=== PATIENT | female | born 1940 | race Caucasian/White ===

== ENCOUNTER 2016-08-01 14:34 | Inpatient (IN) | payer MEDICARE, OTHER ==
[2016-08-01] MEDS ORDERED: SODIUM CHLORIDE 0.9% 1,000 ML IV ONE (15:00)
[2016-08-01] MEDS ORDERED: ONDANSETRON 4 MG/2 ML VIAL IVP STA (15:00)
[2016-08-01] MEDS ORDERED: HYDROmorphone 1 MG/ML SYRINGE IVP STA (15:00)
[2016-08-01] MEDS ORDERED: ONDANSETRON 4 MG/2 ML VIAL ONE (15:08)
[2016-08-01] MEDS ORDERED: HYDROmorphone 1 MG/ML SYRINGE ONE (15:08)
[2016-08-01] MEDS ORDERED: ZOLPIDEM 5 MG TABLET PO PRN (16:23)
[2016-08-01] MEDS ORDERED: HYDROmorphone 1 MG/ML SYRINGE IVP PRN (16:23)
[2016-08-01] MEDS ORDERED: SODIUM CHLORIDE FLUSH 0.9% 10 ML SYRINGE IVP PRN ×3 (16:23→23:49)
[2016-08-01] MEDS ORDERED: PROCHLORPERAZINE 10 MG/2 ML VIAL IVP PRN (16:23)
[2016-08-01] MEDS ORDERED: PROMETHAZINE 25 MG/1 ML VIAL IM PRN (16:23)
[2016-08-01] MEDS ORDERED: oxyCODONE 5 MG TABLET PO PRN ×2 (16:23)
[2016-08-01] MEDS ORDERED: ONDANSETRON 4 MG/2 ML VIAL IVP PRN (16:23)
[2016-08-01] MEDS ORDERED: SODIUM CHLORIDE FLUSH 0.9% 10 ML SYRINGE IVP SCH (22:00)
[2016-08-01] MEDS: PIPERACILLIN/TAZOBACTAM 4.5 GM in SODIUM CHLORIDE 0.9% MINIBAG 100 ML IV SCH (23:43)
[2016-08-02] MEDS ORDERED: IOPAMIDOL-300 100 ML VIAL IVP ONE (00:30)
[2016-08-02] MEDS ORDERED: IOVERSOL-300 50 ML VIAL PO ONE (00:33)
[2016-08-02] MEDS: PIPERACILLIN/TAZOBACTAM 4.5 GM in SODIUM CHLORIDE 0.9% MINIBAG 100 ML IV SCH ×4 (00:36→18:10)
[2016-08-02] MEDS: SODIUM CHLORIDE 0.9% 1,000 ML IV SCH ×4 (00:36→19:38)
[2016-08-02] MEDS: ACETAMINOPHEN 325 MG TABLET PO PRN ×2 (00:49→16:30)
[2016-08-02] MEDS: PANTOPRAZOLE 40 MG TABLET PO SCH (06:40)
[2016-08-02] MEDS: ENOXAPARIN 40 MG/0.4 ML SYRINGE SUBQ SCH (08:22)
[2016-08-02] MEDS: POLYETHYLENE GLYCOL 3350 17 GM PACKET PO SCH (08:22)
[2016-08-02] MEDS: FENOFIBRATE 48 MG TABLET PO SCH (08:25)
[2016-08-02] MEDS: hydroCHLOROthiazide 25 MG TABLET PO SCH (08:32)
[2016-08-02] MEDS: LOSARTAN 50 MG TABLET PO SCH (08:32)
[2016-08-02] MEDS: DOXYCYCLINE 40 MG PO SCH (14:02)
[2016-08-02] MEDS ORDERED: MAGNESIUM SULFATE 2 GRAM 50 ML IV ONE (14:46)
[2016-08-02] MEDS ORDERED: SODIUM CHLORIDE 0.9% 100ML 100 ML IV ONE (18:04)
[2016-08-02] MEDS: DEXTROSE 5%-0.9% NACL 1,000 ML IV SCH (18:56)
[2016-08-03] MEDS: PIPERACILLIN/TAZOBACTAM 4.5 GM in SODIUM CHLORIDE 0.9% MINIBAG 100 ML IV SCH ×2 (01:56→10:56)
[2016-08-03] MEDS: DEXTROSE 5%-0.9% NACL 1,000 ML IV SCH ×2 (02:04→11:01)
[2016-08-03] MEDS: PANTOPRAZOLE 40 MG TABLET PO SCH (06:05)
[2016-08-03] MEDS: hydroCHLOROthiazide 25 MG TABLET PO SCH (08:16)
[2016-08-03] MEDS: LOSARTAN 50 MG TABLET PO SCH (08:17)
[2016-08-03] MEDS: FENOFIBRATE 48 MG TABLET PO SCH (08:17)
[2016-08-03] MEDS: DOXYCYCLINE 40 MG PO SCH (08:19)
[2016-08-03] MEDS ORDERED: LORazepam 2 MG/ML SYRINGE IVP PRN (09:26)
[2016-08-03] MEDS: ENOXAPARIN 40 MG/0.4 ML SYRINGE SUBQ SCH (09:36)
[2016-08-03] MEDS: POLYETHYLENE GLYCOL 3350 17 GM PACKET PO SCH (09:36)
[2016-08-03] MEDS ORDERED: BUPIVACAINE 0.5% PF 30 ML VIAL SUBQ ONE ×2 (16:38)
[2016-08-03] MEDS ORDERED: LACTATED RINGERS 1,000 ML IV ONE ×2 (16:38→17:16)
[2016-08-03] MEDS ORDERED: SODIUM CHLORIDE 0.9% 1,000 ML IV ONE (16:38)
[2016-08-03] MEDS ORDERED: ESMOLOL 100 MG/10 ML VIAL IVP ONE (16:45)
[2016-08-03] MEDS ORDERED: LIDOCAINE-MPF 2% 5 ML VIAL IM ONE (16:45)
[2016-08-03] MEDS ORDERED: PIPERACILLIN/TAZOBACTAM 3.375 GM in SODIUM CHLORIDE 0.9% MINIBAG 100 ML IV SCH (16:45)
[2016-08-03] MEDS ORDERED: PROPOFOL 200 MG/20 ML VIAL IVP ONE (16:45)
[2016-08-03] MEDS ORDERED: SUCCINYLCHOLINE 200 MG/10 ML VIAL IVP ONE (16:45)
[2016-08-03] MEDS ORDERED: fentaNYL 250 MCG/5 ML VIAL IVP ONE (16:45)
[2016-08-03] MEDS ORDERED: ACETAMINOPHEN 1,000 MG/100 ML VIAL IV ONE (16:45)
[2016-08-03] MEDS ORDERED: DEXAMETHASONE 4 MG/ML VIAL IVP ONE (16:45)
[2016-08-03] MEDS ORDERED: MIDAZOLAM 2 MG/2 ML VIAL IVP ONE (16:45)
[2016-08-03] MEDS ORDERED: ePHEDrine 50 MG/ML AMP IVP ONE (16:45)
[2016-08-03] MEDS ORDERED: HYDROcod/ACETAM 5/325 MG TABLET PO PRN (18:03)
[2016-08-03] MEDS ORDERED: SODIUM CHLORIDE FLUSH 0.9% 10 ML SYRINGE IVP PRN (18:03)
[2016-08-03] MEDS: PIPERACILLIN/TAZOBACTAM 3.375 GM in SODIUM CHLORIDE 0.9% MINIBAG 100 ML IV SCH ×2 (18:54→23:50)
[2016-08-03] MEDS: D5NS W/20 MEQ KCL 1,000 ML IV SCH (18:54)
[2016-08-03] MEDS: SODIUM CHLORIDE FLUSH 0.9% 10 ML SYRINGE IVP SCH (21:50)
[2016-08-04] MEDS: PIPERACILLIN/TAZOBACTAM 3.375 GM in SODIUM CHLORIDE 0.9% MINIBAG 100 ML IV SCH ×2 (05:37→12:53)
[2016-08-04] MEDS: D5NS W/20 MEQ KCL 1,000 ML IV SCH (05:37)
[2016-08-04] MEDS: PANTOPRAZOLE 40 MG TABLET PO SCH (06:18)
[2016-08-04] MEDS: SODIUM CHLORIDE FLUSH 0.9% 10 ML SYRINGE IVP SCH ×3 (07:29→15:22)
[2016-08-04] MEDS: ENOXAPARIN 40 MG/0.4 ML SYRINGE SUBQ SCH (08:59)
[2016-08-04] MEDS: FENOFIBRATE 48 MG TABLET PO SCH (08:59)
[2016-08-04] MEDS: hydroCHLOROthiazide 25 MG TABLET PO SCH (09:00)
[2016-08-04] MEDS: LOSARTAN 50 MG TABLET PO SCH (09:00)
[2016-08-04] MEDS: DOXYCYCLINE 40 MG PO SCH (09:00)
[2016-08-04] MEDS: POLYETHYLENE GLYCOL 3350 17 GM PACKET PO SCH (09:01)
[2016-08-04] MEDS ORDERED: POTASSIUM CHLORIDE 20 MEQ TABLET PO ONE (11:45)
== END 2016-08-04 17:50 | disposition home or self-care (01) | DRG 417 ==
PROC: 0FT44ZZ Resection of Gallbladder, Percutaneous Endoscopic Approach (ICD-10-PCS; principal; 2016-08-03 14:15)
DX: K80.20 Calculus of gallbladder without cholecystitis without obstruction (principal); K85.90 Acute pancreatitis without necrosis or infection, unspecified; K80.00 Calculus of gallbladder with acute cholecystitis without obstruction; K85.10 Biliary acute pancreatitis without necrosis or infection; N17.9 Acute kidney failure, unspecified; I10 Essential (primary) hypertension; E78.5 Hyperlipidemia, unspecified; Z85.42 Personal history of malignant neoplasm of other parts of uterus; Z90.710 Acquired absence of both cervix and uterus; Z79.82 Long term (current) use of aspirin; L71.9 Rosacea, unspecified; Z66 Do not resuscitate; Z82.61 Family history of arthritis; Z82.49 Family history of ischemic heart disease and other diseases of the circulatory system; M19.90 Unspecified osteoarthritis, unspecified site; E66.9 Obesity, unspecified; Z98.49 Cataract extraction status, unspecified eye; Z96.1 Presence of intraocular lens; Z68.31 Body mass index [BMI] 31.0-31.9, adult

== ENCOUNTER 2018-02-02 15:04 | Outpatient (CLI) | payer MEDICARE, OTHER ==
--- NOTE | 2018-02-04 17:01 | Mammography Report ---
Reason: SCREENING MAMMO Procedure Date: 02/02/2018 Accession Number: [id number] / [id number] Procedure: MGN - Screening Mammo Dig Bilat CPT Code: FULL RESULT: EXAM: Screening Mammo Dig Bilat DATE: 02/02/2018 3:37 PM CLINICAL HISTORY: 77-year-old female presents for screening mammogram. TECHNIQUE: Bilateral CC and MLO views were obtained. COMPARISON: 09/09/2015, 06/28/2014, 06/12/2013, 05/18/2012. FINDINGS: The breasts demonstrate heterogeneously dense fibroglandular parenchyma bilaterally. Typically benign round calcifications are seen in the right breast. No suspicious masses, clustered microcalcifications, or regions of architectural distortion are identified. IMPRESSION: Benign findings RECOMMENDATION: Routine annual screening unless otherwise clinically indicated. BIRADS CATEGORY 2: Benign findings STANDARD QUALIFYING STATEMENTS: 1. This examination was not reviewed with the aid of Computer-Aided Detection (CAD). 2. A negative or benign imaging report should not delay biopsy if clinically suspicious findings are present. Consider surgical consultation if warrented. More than 5% of cancers are not identified by imaging. 3. Dense breasts may obscure an underlying neoplasm. 4. This examination was reviewed without the aid of 3D breast imaging (tomosynthesis).
== END 2018-02-02 15:05 | disposition home or self-care (01) ==
LOC: DI.N 15:04
PROVIDERS: ATTEND Radiology Diagnostic Radiology
DX: Z12.31 Encounter for screening mammogram for malignant neoplasm of breast (principal)
CPT/HCPCS: 77067

== ENCOUNTER 2018-02-03 09:06 | Outpatient (CLI) | payer MEDICARE, OTHER ==
--- NOTE | 2018-02-07 08:07 | DEXA Report ---
Reason: BONE DISEASE Procedure Date: 02/03/2018 Accession Number: [id number] / [id number] Procedure: DEX - Dexa Spine and/or Hip CPT Code: FULL RESULT: EXAM: Dexa Spine and/or Hip DATE: 02/03/2018 10:02 AM CLINICAL HISTORY: BONE DISEASE TECHNIQUE: Dual energy x-ray absorptiometry (DXA) was performed on a [employer] System. Regions measured are the AP Spine, femoral neck, and if needed forearm. COMPARISON: 01/21/2016. In accordance with the International Society for Clinical Densitometry (ISCD) guidelines, data from previous exams may be reanalyzed using current recommendations and techniques. This is done to allow a more accurate basis for comparison with the current study. FINDINGS: The data for the lumbar spine is as follows: BMD (g/cm/cm) T-SCORE Z-SCORE REGION L1 1.213 0.7 2.3 L2 1.320 1.0 2.7 L3 1.369 1.4 3.1 L4 1.365 1.4 3.0 TOTAL 1.319 1.2 2.8 NOTE: All evaluable vertebrae are used for classification The data for the hip is as follows: BMD (g/cm/cm) T-SCORE Z-SCORE REGION Neck 0.791 -1.8 0.2 TOTAL 0.900 -0.9 1.0 NOTE: The femoral neck or total proximal femur, whichever is lowest, is used for classification. NOTE: The 33% radius of the nondominant forearm is used for classification. DXA RESULTS SUMMARY: Spine SCAN DATE AGE BMD CHANGE VS CHANGE VS PREVIOUS PREVIOUS % [birth year]/2018 [age] 1.319 -0.114 -0.3 01/21/2016 [age] 1.323 * Denotes significant change at the 95% confidence level. Denotes dissimilar scan types or analysis methods. DXA RESULTS SUMMARY: Hip SCAN DATE AGE BMD CHANGE VS CHANGE VS PREVIOUS PREVIOUS % [birth year]2018 [age] 0.900 -0.074* -7.6* 01/21/2016 75.2 0.974 * Denotes significant change at the 95% confidence level. Denotes dissimilar scan types or analysis methods. IMPRESSION: THE WHO CLASSIFICATION BASED ON THE INTERNATIONAL REFERENCE STANDARD IS OSTEOPENIA. THE FRACTURE RISK IS INCREASED. RECOMMENDATION: Patients with diagnosis of osteoporosis or osteopenia should have regular bone mineral density assessment. For those eligible for Medicare, routine testing is allowed once every 2 years. Testing frequency can be increased for patients who have rapidly progressing disease or for those who are receiving medical therapy to restore bone mass. COMMENT: World Health Organization (WHO) definitions for osteoporosis and osteopenia: NORMAL BMD: T-score at -1.0 or higher, fracture risk is low OSTEOPENIA BMD: T-score between -1.0 and -2.5, fracture risk is increased. OSTEOPOROSIS BMD: T-score at -2.5 or lower, fracture risk is high. National Osteoporosis Foundation recommends: 1. Obtain adequate dietary calcium (at least 1200 mg per day) and vitamin D (400-800 international units per day). 2. Participate, as appropriate, in regular weightbearing and muscle-strengthening exercise. 3. Avoid tobacco use and reduce alcohol and caffeine intake. 4. For more detailed information see the website at www.NOF.org.
== END 2018-02-03 09:07 | disposition home or self-care (01) ==
LOC: DI 09:06
PROVIDERS: ATTEND Physician Assistant Medical
DX: M85.89 Other specified disorders of bone density and structure, multiple sites (principal)
CPT/HCPCS: 77080

== ENCOUNTER 2018-06-13 08:17 | Emergency (ER) | payer MEDICARE, OTHER ==
[2018-06-13] MEDS ORDERED: BUFFERED LIDOCAINE 10 ML SYRINGE SUBQ STA (08:32)
--- NOTE | 2018-06-13 08:35 | ED Physician Documentation ---
PD HPI HEAD INJURY - Stated complaint Stated Complaint: HEAD INJ/FALL - Chief complaint Chief Complaint: Laceration - History obtained from History obtained from: Patient, Family - History of Present Illness Mechanism of head injury: Fell Where head injury occurred: Home Timing - onset: Today Location of injury: Back Quality of pain: Pain Associated symptoms: No: LOC, AMS, Amnesia, Nausea / vomiting, Neck pain, Paresthesias, Seizures, Ear drainage, Nasal drainage Symptoms improve with: Rest Symptoms worsen with: Palpation, Movement Contributing factors: No: Anticoagulated Similar symptoms before: Has not had sx before Recently seen: Not recently seen - Additional information Additional information: Previously well 77-year-old female got up to let the cat out this morning when she slipped on a throw rug her feet came out from underneath her and she struck the back of her head on a nightstand. She denies any loss of consciousness with this and denies any neck pain. She does have a small abrasion to her nose as well. She denies any dizziness or nausea or change in mentation. She is accompanied by her who notes she feels well. Review of Systems Constitutional: denies: Fever Eyes: denies: Decreased vision Ears: denies: Ear pain Nose: denies: Rhinorrhea / runny nose, Congestion Throat: denies: Sore throat Respiratory: denies: Dyspnea, Cough GI: denies: Nausea, Vomiting PD PAST MEDICAL HISTORY - Past Medical History Cardiovascular: Hypertension Respiratory: Other Endocrine/Autoimmune: None GI: None : Incontinence HEENT: None Musculoskeletal: Osteoarthritis Derm: Psoriasis, Rosacea - Past Surgical History General: Appendectomy, Colonoscopy /DIETETIC TECHNICIAN REGISTERED: Tubal ligation, Hysterectomy HEENT: Cataracts - Present Medications Home Medications: Ambulatory Orders Medication Instructions Recorded Confirmed Calcium Carbonate/Vitamin D3 600 mg ORAL DAILY 01/11/14 06/13/18 [Calcium 600-Vit D3 200 Tablet] Aspirin Chewable [[facility] Balaji 81 mg PO DAILY 08/01/16 06/13/18 Aspirin] Triamterene/Hydrochlorothiazid 1 tab PO DAILY 08/01/16 08/01/16 [Triamterene-Hctz 37.5-25 mg Tb] Doxycycline Monohydrate [Oracea] 40 mg PO DAILY 08/02/16 08/02/16 Fenofibrate [Tricor] 144 mg PO DAILY tablet 08/04/16 06/13/18 HYDROcod/ACETAM 5/325 [Brooks 5/325] 1 tab PO Q4HR PRN #25 tablet 08/04/16 Losartan [Cozaar] 100 mg PO DAILY tablet 08/04/16 06/13/18 Pantoprazole [Protonix] 40 mg PO QDAC tablet 08/04/16 Polyethylene Glycol 3350 [Miralax] 17 gm PO DAILY packet 08/04/16 hydroCHLOROthiazide [Hydrodiuril] 37.5 mg PO DAILY tablet 08/04/16 06/13/18 - Allergies Allergies/Adverse Reactions: Allergies Allergy/AdvReac Type Severity Reaction Status Date / Time No Known Drug Allergies Allergy Verified 06/13/18 08:25 - Social History Does the pt smoke?: No Smoking Status: Never smoker Does the pt drink ETOH?: No Does the pt have substance abuse?: No PD ED PE NORMAL - Vitals Vital signs reviewed: Yes (hypertensive mild ) - General General: Alert and oriented X 3, No acute distress, Well developed/nourished - HEENT HEENT: PERRL, EOMI, Other (There is a 3cm laceration to the scalp over the left occipital vertex. The laceration does not involve deeper structures. ) - Neck Neck: Supple, no meningeal sign, No bony TTP - Respiratory Respiratory: No respiratory distress - Derm Derm: Normal color, Warm and dry, No rash - Extremities Extremities: No deformity, No edema - Neuro Neuro: Alert and oriented X 3, edge burnisher uppers 2-12 intact, No motor deficit, No sensory deficit, Normal speech Eye Opening: Spontaneous Motor: Obeys Commands Verbal: Oriented GCS Score: 15 - Psych Psych: Normal mood, Normal affect Results - Vitals Vitals: Vital Signs - 24 hr 06/13/18 06/13/18 08:22 08:29 Temperature 37.0 C Heart Rate 73 Respiratory 17 18 Rate Blood Pressure 133/69 H O2 Saturation 99 Oxygen O2 Source Room air Procedures - Laceration (location) scalp Length in cm: 4 Wound type: Curved, Clean Neurovascular status: Sensory intact, Motor intact, Vascular intact Anesthesia: Lidocaine 1%, With bicarb Wound Preparation: Hibiclens, Irrigated copiously NS, Wound explored, To the base Skin layer closure: [place] Other: Patient tolerated well, No complications, Neurovascular intact, Dressing applied, Tetanus UTD Complexity: Simple PD MEDICAL DECISION MAKING - ED course Complexity details: reviewed results, re-evaluated patient, considered differential, d/w patient, d/w family ED course: 77-year-old female with a slip and fall at home has a contusion of the back of her head with a laceration she did not have loss of consciousness and she denies any pain in her neck. She tolerated stapling quite well. She does have a small abrasion over nasal bridge as well. Departure - Departure Disposition: 01 Home, Self Care Clinical Impression: Scalp laceration Qualifiers: Encounter type: initial encounter Qualified Code(s): S01.01XA - Laceration without foreign body of scalp, initial encounter Closed head injury Qualifiers: Encounter type: initial encounter Qualified Code(s): S09.90XA - Unspecified injury of head, initial encounter Condition: Stable Instructions: ED Head Injury Closed, ED Laceration Scalp Stitch Or Stap Follow-Up: Jennifer Rodriguez PA-C [Primary Care Provider] - Comments: Jarrett should be removed in 10 days
[2018-06-13 09:39] VITALS: BP 128/70
== END 2018-06-13 09:38 | disposition home or self-care (01) ==
LOC: ED 08:17
DX: S01.01XA Laceration without foreign body of scalp, initial encounter (principal); S00.31XA Abrasion of nose, initial encounter; S09.90XA Unspecified injury of head, initial encounter; W01.190A Fall on same level from slipping, tripping and stumbling with subsequent striking against furniture, initial encounter; Y93.89 Activity, other specified; Y92.003 Bedroom of unspecified non-institutional (private) residence as the place of occurrence of the external cause; I10 Essential (primary) hypertension; Z79.82 Long term (current) use of aspirin
CPT/HCPCS: 12002; 99283

== ENCOUNTER 2019-02-20 12:13 | Outpatient (CLI) | payer MEDICARE, OTHER ==
--- NOTE | 2019-02-21 08:59 | Mammography Report ---
Reason: ROUTINE MAMMO Procedure Date: 02/20/2019 Accession Number: [id number] / [id number] Procedure: MGN - Screening Mammo Dig Bilat CPT Code: FULL RESULT: EXAM: Screening Mammo Dig Bilat DATE: 02/20/2019 12:55 PM CLINICAL HISTORY: Screening encounter. History of endometrial cancer. TECHNIQUE: (B) - Bilateral CC and MLO views were obtained. COMPARISON: 02/02/2018 through 05/18/2012. PARENCHYMAL PATTERN: (A) - The breast(s) demonstrate(s) scattered fibroglandular densities. FINDINGS: There are coarse typically benign calcifications. There are no suspicious masses, calcifications, or areas of distortion. IMPRESSION: Benign findings. BI-RADS category 2. RECOMMENDATION: (ANNUAL) - Recommend routine annual screening mammography. BI-RADS CATEGORY: (2) - Benign Findings. STANDARD QUALIFYING STATEMENTS: 1. This examination was not reviewed with the aid of Computer-Aided Detection (CAD). 2. A negative or benign imaging report should not preclude biopsy if clinically suspicious findings are present. 3. Dense breasts may obscure an underlying neoplasm. 4. This examination was reviewed without the aid of 3D breast imaging (tomosynthesis).
== END 2019-02-20 12:14 | disposition home or self-care (01) ==
LOC: DI.N 12:13
DX: Z12.31 Encounter for screening mammogram for malignant neoplasm of breast (principal)
CPT/HCPCS: 77067